=== PATIENT | male | born 1970 | race Caucasian/White ===

== ENCOUNTER 2018-02-23 17:23 | Emergency (ER) | payer MEDICAID, SELFPAY ==
[2018-02-23] VITALS (44 sets, daily range): BP systolic 109–170; BP diastolic 37–116; PULSE 88–125; RESP 14–26; TEMP 36.7; O2SAT 94–97
[2018-02-23 17:53] LABS: Abs Immature Grans 0.03 k/cumm (0.0-0.09); Absolute Basophil Count 0.03 k/cumm (0.0-0.2); Absolute Eosinophil Count 0.19 k/cumm (0.0-0.7); Absolute Lymphocyte Count 2.04 k/cumm (1.2-3.4); Absolute Monocyte Count 0.53 k/cumm (0.11-0.7); Absolute Neutrophil Count 4.57 k/cumm (1.2-6.7); Basophils % 0.4; Eosinophils % 2.6; HGB 14.9 g/dL (13.5-17.5); Immature Grans % 0.4; Lymphocytes % 27.6; Mean Corp. HGB Concentration 35.5 g/dL (32.0-36.0); Mean Corpuscular Hemoglobin 28.2 pg (27.0-33.0); Mean Corpuscular Volume 79.5 fL (80-95); Mean Platelet Volume 9.9 fL (8.0-11.0); Monocytes % 7.2; Neutrophils % 61.8; Platelet Count 186 x1000/uL (130-400); RBC 5.28 m/cumm (4.50-6.00); RBC Distribution Width 12.9 % (11.8-14.1); White Blood Cell Count 7.39 k/cumm (4.4-10.8)
[2018-02-23 18:05] LABS: Bilirubin Negative (Negative); Blood Trace-lysed (Negative); Clarity Clear; Glucose 500 mg/dL (Negative); Ketones 40 mg/dL (Negative); Leukocyte Esterase Negative (Negative); Nitrite Negative (Negative); Specific Gravity 1.015 (1.005-1.025); Urobilinogen 0.2 EU/dL (Up TO 0.2)
[2018-02-23 18:16] LABS: Bacteria Negative HPF (Negative); C & S Indicated? No; Crystals Negative HPF (Negative); Epithelial Cells Negative HPF (Negative); Mucus Negative (Negative); RBC 0-2 (0-2); WBC 0-2 HPF (0-5)
[2018-02-23 18:16] LABS: Albumin 4.1 g/dL (3.4-5.0); Alkaline Phosphatase 93 U/L (46-116); Anion Gap 12.8 mmol/L (3-11); BUN 18 mg/dL (7-18); Bilirubin, Total 0.4 mg/dL (0.2-1.0); CO2 25.2 mmol/L (21.0-32.0); CREATININE 1.07 mg/dL (0.70-1.30); Chloride 91 mmol/L (98-107); Glucose 451 mg/dL (70-100); Lipase 364 U/L (73-393); Magnesium 1.9 mg/dL (1.8-2.4); Potassium 4.1 mmol/L (3.5-5.1); Sodium 129 mmol/L (136-145); Total Protein 8.5 g/dL (6.4-8.2)
[2018-02-23 18:23] LABS: Troponin I < 0.02 ng/mL (0.00-0.06)
[2018-02-23] MEDS: Normal Saline 1,000 ML 1000 ML IV ×2 (18:28→19:42)
[2018-02-23] MEDS: Insulin REGULAR-Human 100 UNITS/ML UNIT 7 UNITS IV (18:55)
[2018-02-23 19:21] LABS: ALT 65 U/L (12-78); AST 31 U/L (15-37)
[2018-02-23 19:23] LABS: Calcium 9.4 mg/dL (8.5-10.1)
--- NOTE | 2018-02-23 20:01 | ED.GENADUL_ITS ---
Disposition <Em Segundo Mayra - Last Filed: 02/23/18 20:37> <ShaileshDanny Gonzales - Last Filed: 02/23/18 21:35> Clinical Impression: Hyperglycemia, New onset type 2 diabetes mellitus Disposition: HOME Condition: Stable Instructions: Diabetic Hyperglycemia (ED) Additional Instructions: Drink plenty of fluids and get plenty of rest. Take metformin as directed. You should receive a call from care management regarding follow-up with [facility] for reevaluation in the next 2-3 days. Return immediately to the emergency department any worsening or new concerning symptoms. Prescriptions: Blood Sugar Diagnostic [Test Strips] 1 each DIRECTED #30 strip Blood-Glucose Meter [Glucocom Blood Glucose] 1 each MC DIRECTED #1 kit Lancets [Glucocom Lancets] 1 each DIRECTED #30 each MetFORMIN [Glucophage] 500 mg PO BID@0800,1700 14 Days tab Medical Decision Making - Lab Data Laboratory Tests 02/23/18 02/23/18 02/23/18 17:45 17:45 18:00 WBC 7.39 RBC 5.28 Hgb 14.9 Hct 42.0 MCV 79.5 L MCH 28.2 MCHC 35.5 RDW 12.9 Plt Count 186 MPV 9.9 Immature Gran % 0.4 Neutrophils % 61.8 Lymphocytes % 27.6 Monocytes % 7.2 Eosinophils % 2.6 Basophils % 0.4 Absolute Neutrophils 4.57 Absolute Lymphocytes 2.04 Absolute Monocytes 0.53 Absolute Eosinophils 0.19 Absolute Basophils 0.03 Sodium 129 L Potassium 4.1 Chloride 91 L Carbon Dioxide 25.2 Anion Gap 12.8 H BUN 18 Creatinine 1.07 Estimated GFR/1.73 m2 >= 60.00 Glucose 451 H Calcium 9.4 Magnesium 1.9 Total Bilirubin 0.4 AST 31 ALT 65 Alkaline Phosphatase 93 Troponin I < 0.02 Total Protein 8.5 H Albumin 4.1 Lipase 364 Urine Color Yellow Urine Clarity Clear Urine pH 5.0 Ur Specific Perry 1.015 Urine Protein 100 H Urine Ketones 40 H Urine Blood Trace-lysed H Urine Nitrite Negative Urine Bilirubin Negative Urine Urobilinogen 0.2 Ur Leukocyte Esterase Negative Urine RBC 0-2 Urine WBC 0-2 Ur Epithelial Cells Negative Urine Crystals Negative Urine Bacteria Negative Urine Mucus Negative Ur Culture Indicated? No Urine Glucose 500 H - Medical Decision Making 47-year-old male with history of prediabetes and family history of diabetes type 2 who presents for 2 weeks of polyuria, polydipsia bilateral leg cramps. Glucose read as high with a hemoglobin A1c of 13.4% at PCP office today. Sent here for evaluation to rule out DKA versus HHS. Heart rate 111 but afebrile. Patient appears nontoxic, airway intact and in no acute distress. Accu-Chek on arrival read as high. Will place an IV, bolus IV fluids, labs, urinalysis. 1829 --labs reviewed. Sodium 129. Chloride 91. Bicarb 25. Anion gap 12.8. Glucose 451. Urinalysis notes ketones. Will give 7 units of regular insulin IV and another bolus IV fluids. 1999 --Case endorsed to Dr. Cash to follow-up on repeat BMP and disposition. Will plan for care management to arrange for a follow-up appointment with [facility] within the next 2-3 days. If repeat BMP is reassuring and glucose decreasing with no signs of DKA or HHS, will discharged home with prescription for metformin. <Em Segundo - Last Filed: 02/23/18 20:37> - Lab Data Laboratory Tests 02/23/18 02/23/18 02/23/18 17:45 17:45 18:00 WBC 7.39 RBC 5.28 Hgb 14.9 Hct 42.0 MCV 79.5 L MCH 28.2 MCHC 35.5 RDW 12.9 Plt Count 186 MPV 9.9 Immature Gran % 0.4 Neutrophils % 61.8 Lymphocytes % 27.6 Monocytes % 7.2 Eosinophils % 2.6 Basophils % 0.4 Absolute Neutrophils 4.57 Absolute Lymphocytes 2.04 Absolute Monocytes 0.53 Absolute Eosinophils 0.19 Absolute Basophils 0.03 Sodium 129 L Potassium 4.1 Chloride 91 L Carbon Dioxide 25.2 Anion Gap 12.8 H BUN 18 Creatinine 1.07 Estimated GFR/1.73 m2 >= 60.00 Glucose 451 H Calcium 9.4 Magnesium 1.9 Total Bilirubin 0.4 AST 31 ALT 65 Alkaline Phosphatase 93 Troponin I < 0.02 Total Protein 8.5 H Albumin 4.1 Lipase 364 Urine Color Yellow Urine Clarity Clear Urine pH 5.0 Ur Specific Perry 1.015 Urine Protein 100 H Urine Ketones 40 H Urine Blood Trace-lysed H Urine Nitrite Negative Urine Bilirubin Negative Urine Urobilinogen 0.2 Ur Leukocyte Esterase Negative Urine RBC 0-2 Urine WBC 0-2 Ur Epithelial Cells Negative Urine Crystals Negative Urine Bacteria Negative Urine Mucus Negative Ur Culture Indicated? No Urine Glucose 500 H 02/23/18 21:10 WBC RBC Hgb Hct MCV MCH MCHC RDW Plt Count MPV Immature Gran % Neutrophils % Lymphocytes % Monocytes % Eosinophils % Basophils % Absolute Neutrophils Absolute Lymphocytes Absolute Monocytes Absolute Eosinophils Absolute Basophils Sodium 134 L Potassium 3.7 Chloride 98 Carbon Dioxide 29.6 Anion Gap 6.4 BUN 16 Creatinine 0.96 Estimated GFR/1.73 m2 >= 60.00 Glucose 289 H D Calcium 8.2 L Magnesium Total Bilirubin AST ALT Alkaline Phosphatase Troponin I Total Protein Albumin Lipase Urine Color Urine Clarity Urine pH Ur Specific Perry Urine Protein Urine Ketones Urine Blood Urine Nitrite Urine Bilirubin Urine Urobilinogen Ur Leukocyte Esterase Urine RBC Urine WBC Ur Epithelial Cells Urine Crystals Urine Bacteria Urine Mucus Ur Culture Indicated? Urine Glucose - Medical Decision Making Patient's laboratory workup has returned normal. Anion gap is completely normalized. Sugar has significantly improved. The patient feels much better clinically. I feel that the patient be safely discharged home with metformin, and follow-up tomorrow morning with his PCP. We discussed red flags which return he understands. I have extensively reviewed the treatment plan and discharge instructions with the patient and their family. I have addressed all patient concerns at this time. The patient and family was made aware of what symptoms to monitor for that would warrant a return to the emergency department. Discussed the plan with the patient and family, they demonstrate verbal understanding and agreement with our assessment and plan at this time. <Danny Cash R - Last Filed: 02/23/18 21:35> History of Present Illness - General Source: patient Mode of arrival: ambulatory Limitations: no limitations - History of Present Illness Initial comments: Patient is a 47-year-old male with history of prediabetes, hypertension, anxiety and depression who presents for 2 weeks of polyuria, polydipsia and bilateral leg cramps in his calves. Patient also admits to occasional nausea and sweats. He also admits to a 20 pound weight loss over the past month. States he has been trying to eat healthier but otherwise has been eating frequently. Patient was seen at [facility] today for these symptoms and was sent here for further evaluation with concern for DKA versus HHS. His glucose was read as high in the PCP office today. Hemoglobin A1c from today was 13.4. <Em Segundo - Last Filed: 02/23/18 20:37> <Danny Cash - Last Filed: 02/23/18 21:35> - General Chief complaint: Diabetes Stated complaint: DIABETIC CONCERNS Time Seen by Provider: 02/23/18 17:23 - Related Data Bupropion HCl 75 mg PO DAILY 11/09/15 Chlorthalidone 25 mg PO DAILY 11/09/15 Lisinopril 20 mg PO HS 11/09/15 Magnesium Oxide [Mag-Ox 400] 400 mg PO DAILY #120 tab 11/09/15 Potassium Chloride 40 meq PO DAILY #60 tablet.er 11/09/15 Sertraline HCl 100 mg PO HS 11/09/15 Blood Sugar Diagnostic [Test Strips] 1 each MC DIRECTED #30 strip 02/23/18 Blood-Glucose Meter [Glucocom Blood Glucose] 1 each MC DIRECTED #1 kit Lancets [Glucocom Lancets] 1 each MC DIRECTED #30 each 02/23/18 MetFORMIN [Glucophage] 500 mg PO BID@0800,1700 14 Days tab 02/23/18 Allergies Allergy/AdvReac Type Severity Reaction Status Date / Time No Known Allergies Allergy Unverified 02/23/18 17:32 Review of Systems Constitutional: denies: chills, fever Eyes: denies: eye pain ENT: denies: ear pain, dental pain Respiratory: denies: cough, shortness of breath Cardiovascular: denies: chest pain, dyspnea on exertion Gastrointestinal: denies: abdominal pain, nausea, vomiting Genitourinary: denies: urgency, dysuria, frequency, hematuria Musculoskeletal: denies: back pain Skin: denies: rash, lesions Neurological: denies: headache, weakness, numbness <Em Segundo - Last Filed: 02/23/18 20:37> Past Medical History - Past Medical History Medical history: hyperlipidemia, hypertension Pre-Diabetes Surgical history: appendectomy, other (eye surgery and skin tags removed. ) Psychiatric history: anxiety, depression Family history: no significant family history - Social History Smoking status: never smoker Alcohol use: occasionally Drug use: none <Em Segundo - Last Filed: 02/23/18 20:37> General Exam - General Limitations: no limitations General appearance: alert, in no apparent distress - Eye Eye exam: Present: PERRL, EOMI. Absent: scleral icterus, conjunctival injection - Respiratory Respiratory exam: Present: normal lung sounds bilaterally. Absent: respiratory distress, wheezes, rales, rhonchi, stridor - Cardiovascular Cardiovascular Exam: Present: regular rate, normal rhythm. Absent: bradycardia , tachycardia - GI/Abdominal GI/Abdominal exam: Present: soft, normal bowel sounds. Absent: distended, tenderness, guarding, rebound, rigid - Neurological Exam Neurological exam: Present: alert, oriented X3 - Psychiatric Psychiatric exam: Present: normal affect - Skin Skin exam: Present: warm, dry, intact <Em Segundo - Last Filed: 02/23/18 20:37> Course Vital Signs - 24 hr 02/23/18 17:30 Temperature 98.1 F Pulse 111 H Respiratory 18 Rate Blood Pressure 151/99 Pulse Oximetry 96 <Em Segundo - Last Filed: 02/23/18 20:37> Vital Signs - 24 hr 02/23/18 02/23/18 02/23/18 17:30 17:36 17:40 Temperature 36.7 C Pulse 111 H Respiratory 18 14 22 Rate Blood Pressure 151/99 Pulse Oximetry 96 96 95 02/23/18 02/23/18 02/23/18 17:46 17:50 18:00 Temperature Pulse 93 H Respiratory 21 23 23 Rate Blood Pressure 152/106 Pulse Oximetry 95 95 02/23/18 02/23/18 02/23/18 18:01 18:10 18:16 Temperature Pulse 89 93 H Respiratory 21 20 23 Rate Blood Pressure 140/93 152/97 Pulse Oximetry 95 97 94 L 02/23/18 02/23/18 02/23/18 18:20 18:30 18:31 Temperature Pulse 93 H Respiratory 19 26 H 22 Rate Blood Pressure 151/116 Pulse Oximetry 94 L 95 94 L 02/23/18 02/23/18 02/23/18 18:40 18:46 18:50 Temperature Pulse 90 Respiratory 24 21 22 Rate Blood Pressure 170/100 Pulse Oximetry 94 L 94 L 95 02/23/18 02/23/18 02/23/18 18:51 19:00 19:01 Temperature Pulse 89 94 H Respiratory 22 24 24 Rate Blood Pressure 134/81 149/77 Pulse Oximetry 96 02/23/18 02/23/18 02/23/18 19:10 19:16 19:20 Temperature Pulse 97 H Respiratory 23 26 H 24 Rate Blood Pressure 109/86 Pulse Oximetry 02/23/18 02/23/18 02/23/18 19:30 19:46 20:00 Temperature Pulse 100 H 99 H 93 H Respiratory Rate Blood Pressure 127/88 146/98 126/77 Pulse Oximetry 02/23/18 02/23/18 02/23/18 20:15 20:30 20:45 Temperature Pulse 93 H 92 H 91 H Respiratory Rate Blood Pressure 123/83 131/85 123/75 Pulse Oximetry 02/23/18 21:02 Temperature Pulse 125 H Respiratory Rate Blood Pressure 120/37 Pulse Oximetry <Danny aCsh R - Last Filed: 02/23/18 21:35>
[2018-02-23 21:19] LABS: Anion Gap 6.4 mmol/L (3-11); BUN 16 mg/dL (7-18); CO2 29.6 mmol/L (21.0-32.0); CREATININE 0.96 mg/dL (0.70-1.30); Calcium 8.2 mg/dL (8.5-10.1); Chloride 98 mmol/L (98-107); Glucose 289 mg/dL (70-100); Potassium 3.7 mmol/L (3.5-5.1); Sodium 134 mmol/L (136-145)
--- NOTE | 2018-02-24 13:32 | PDOC.ERCMPRO ---
Care Management Progress Note 02/24-Dr. Segundo requested assistance with a PCP (Dr. Putnam) f/u within two days for new onset diabetes. Referral faxed to [facility] today.
== END 2018-02-23 21:42 | disposition home or self-care (01) ==
PROVIDERS: Emergency Provider Physician Assistant
DX: E11.65 Type 2 diabetes mellitus with hyperglycemia (principal); Z79.84 Long term (current) use of oral hypoglycemic drugs; I10 Essential (primary) hypertension
CPT/HCPCS: 36415; 36416; 80048; 80053; 82962; 83690; 96361; 96374; 99284; 81003; 81015; 83735; 84484; 85025

== ENCOUNTER → 2018-03-02 10:57 | Outpatient (REF) | payer MEDICAID, SELFPAY ==
[2018-03-02 12:26] LABS: ALT 77 U/L (12-78); AST 35 U/L (15-37); Albumin 3.9 g/dL (3.4-5.0); Alkaline Phosphatase 65 U/L (46-116); Anion Gap 7.6 mmol/L (3-11); BUN 14 mg/dL (7-18); Bilirubin, Total 0.4 mg/dL (0.2-1.0); CO2 26.4 mmol/L (21.0-32.0); CREATININE 0.93 mg/dL (0.70-1.30); Calcium 8.8 mg/dL (8.5-10.1); Chloride 102 mmol/L (98-107); Glucose 236 mg/dL (70-100); Potassium 4.4 mmol/L (3.5-5.1); Sodium 136 mmol/L (136-145); Total Protein 7.3 g/dL (6.4-8.2)
== END ==
LOC: NCHCN 10:57
PROVIDERS: Visit Provider Nurse Practitioner
DX: E11.9 Type 2 diabetes mellitus without complications (principal)
CPT/HCPCS: 80053

== ENCOUNTER 2018-03-16 09:32 | Outpatient (REF) | payer MEDICAID, SELFPAY ==
[2018-03-16 14:22] LABS: Cholesterol 195 mg/dL (50-200); HDL Cholesterol 39 mg/dL (40-60); LDL CHOLESTEROL 115 mg/dL (<100); Triglyceride 324 mg/dL (30-150)
== END 2018-03-16 09:52 ==
LOC: NCHCN 09:32
PROVIDERS: Visit Provider Nurse Practitioner
DX: E11.9 Type 2 diabetes mellitus without complications (principal); E66.9 Obesity, unspecified; Z00.00 Encounter for general adult medical examination without abnormal findings
CPT/HCPCS: 80061; 83721

== ENCOUNTER 2018-03-21 08:28 | Outpatient (CLI) | payer MEDICAID, SELFPAY ==
--- NOTE | 2018-03-14 14:30 | DIABASSESS_ITS ---
DESCRIPTION: Mayito Kenney presents for diabetes self management with his and daughter. His is familiar with diabetes and has been a support for him. He has had significant symptoms of thirst, frequent urination, fatigue and blurred vision. FOOD: Mayito has given up sugar sweetened beverage completely and has cut his portions. He is also eating more slowly. He is now drinking a [employer]ake[employer] mixed with water or milk. If he takes his lunch, it is a sandwich. Sometimes he doesn?t take it and when he gets home he eats from refrigerator indiscriminately. He now eats meat, vegetable and fruit for supper. He feels he does pretty well. He snacks on beef jerky. PHYSICAL ACTIVITY: He does not do any regular physical activity at this time. MONITORING: Mayito monitors fasting in the 250 range and when he gets home in the 230mg/dl range. He is aware of A1c interpretation and use. MEDICATIONS: Metformin 850 twice daily without ongoing side effects. He is also medically managed for hypertension, depression, stomach issues. STRESS: Mayito states he does not have stress or symptoms of depression at this time. He sleeps well with his C-Pap machine. ASSESSMENT/INTERVENTION: Mayito has made many changes to help manage his newly diagnosed diabetes. Based on Mayito?s assessed diabetes education needs, discussed: Nutrition reviewed food guide to increase variety for him and he voices understanding. Discussed mindful eating concepts of hunger/fullness and overconsumption. Discussed tracking his food and blood sugars and his has used an Kandace she will set up for him. Physical Activity: encouraged physical activity daily starting with 10 minutes with a goal of 30 minutes daily. Medications: Discussed options if additional medication is needed given his A1c. Discussed new medications that help with weight loss and cardiovascular protection. Monitoring: Discussed monitoring for meaning to answer a question. His uses an kandace which she will download for him and get him set up. He will consider monitoring before bed on occasion. He is engaged in the conversation and motivated to work on the following. PLAN: Always take something to eat to work for lunch Walk 10 minutes 5 days a week Discuss medication options with provider if blood sugars not improving Set up Kandace to record food/blood sugars We will be in touch by telephone and follow up as needed.
== END 2018-03-21 08:48 ==
PROVIDERS: Visit Provider Dietitian, Registered
DX: E11.9 Type 2 diabetes mellitus without complications (principal); Z79.84 Long term (current) use of oral hypoglycemic drugs; Z71.3 Dietary counseling and surveillance
CPT/HCPCS: 97802

== ENCOUNTER 2019-03-14 10:47 | Outpatient (REF) | payer MEDICAID, SELFPAY ==
[2019-03-14 21:45] LABS: ALT 63 U/L (16-63); AST 25 U/L (15-37); Albumin 4.3 g/dL (3.4-5.0); Alkaline Phosphatase 66 U/L (46-116); Anion Gap 9.2 mmol/L (3-11); BUN 15 mg/dL (7-18); Bilirubin, Total 0.4 mg/dL (0.2-1.0); CO2 28.8 mmol/L (21.0-32.0); CREATININE 0.97 mg/dL (0.70-1.30); Calcium 9.1 mg/dL (8.5-10.1); Calculated LDL 30 mg/dL; Chloride 104 mmol/L (98-107); Cholesterol 123 mg/dL (50-200); Glucose 105 mg/dL (70-100); HDL Cholesterol 37 mg/dL (40-60); Potassium 4.1 mmol/L (3.5-5.1); Sodium 142 mmol/L (136-145); Total Protein 7.7 g/dL (6.4-8.2); Triglyceride 281 mg/dL (30-150)
[2019-03-14 22:06] LABS: Hemoglobin A1C 6.6 % (4.5-6.2)
== END 2019-03-14 11:07 ==
LOC: NCHCN 10:47
PROVIDERS: PCP Nurse Practitioner Family; Visit Provider Nurse Practitioner Family
DX: E11.9 Type 2 diabetes mellitus without complications (principal); E78.5 Hyperlipidemia, unspecified; Z86.39 Personal history of other endocrine, nutritional and metabolic disease
CPT/HCPCS: 80053; 80061; 83036

== ENCOUNTER 2020-02-26 02:10 | Outpatient (REF) | payer SELFPAY ==
[2020-03-01 11:51] LABS: TB Interpretation Negative (Negative)
== END 2020-02-26 02:30 ==
LOC: LBO 02:10
PROVIDERS: PCP Nurse Practitioner Family; Visit Provider Nurse Practitioner Family
DX: Z11.1 Encounter for screening for respiratory tuberculosis (principal)
CPT/HCPCS: 86480

== ENCOUNTER 2020-03-13 02:19 | Outpatient (CLI) | payer MEDICAID, SELFPAY ==
[2020-03-13 14:55] LABS: Abs Immature Grans 0.03 10^3/uL (0.0-0.06); Absolute Basophil Count 0.03 10^3/uL (0.0-0.2); Absolute Eosinophil Count 0.15 10^3/uL (0.0-0.7); Absolute Lymphocyte Count 1.91 10^3/uL (1.2-3.4); Absolute Neutrophil Count 4.14 10^3/uL (1.2-6.7); Basophils % 0.4; Eosinophils % 2.2; HCT 39.6 % (40.0-50.0); HGB 13.1 g/dL (13.5-17.5); Immature Grans % 0.4; Lymphocytes % 28.3; MCH 28.2 pg (27.0-33.0); MCHC 33.1 % (32.0-36.0); MCV 85.3 fL (80-95); MPV 9.1 fL (8.0-11.0); Monocytes % 7.4; Neutrophils % 61.3; Nucleated RBC 0 %; Platelet Count 176 10^3/uL (130-400); RBC 4.64 10^6/uL (4.36-5.78); RDW 13.3 % (11.8-14.1); RDW-SD 41.5 fL; WBC 6.76 10^3/uL (4.4-10.8)
[2020-03-13 16:19] LABS: ALT 59 U/L (16-63); AST 25 U/L (15-37); Albumin 4.4 g/dL (3.4-5.0); Alkaline Phosphatase 69 U/L (46-116); Anion Gap 5.3 mmol/L (3-11); BUN 17 mg/dL (7-18); Bilirubin, Total 0.5 mg/dL (0.2-1.0); CO2 31.7 mmol/L (21.0-32.0); Calcium 8.9 mg/dL (8.5-10.1); Chloride 102 mmol/L (98-107); Glucose 88 mg/dL (74-106); Potassium 3.4 mmol/L (3.5-5.1); Sodium 139 mmol/L (136-145); Total Protein 7.6 g/dL (6.4-8.2)
[2020-03-13 19:18] LABS: Hemoglobin A1C 6.5 % (<5.7)
== END 2020-03-13 02:39 ==
PROVIDERS: PCP Nurse Practitioner Family; Visit Provider Family Medicine
DX: E11.9 Type 2 diabetes mellitus without complications (principal); I10 Essential (primary) hypertension
CPT/HCPCS: 36415; 80053; 83036; 85025

== ENCOUNTER 2020-07-11 13:36 | Emergency (ER) | payer MEDICAID, SELFPAY ==
[2020-07-11 13:39] VITALS: BP 143/87; PULSE 91; RESP 18; TEMP 36.4; O2SAT 98
--- NOTE | 2020-07-11 13:45 | DI.RAD_ITS ---
EXAM: XR CERVICAL SP LEAL TRAUMA 2-3V CLINICAL HISTORY: Cervical Radiculopathy. TECHNIQUE: 2D digital imaging was performed. COMPARISON: No exams were available for comparison FINDINGS: There is no evidence of acute fracture or listhesis nor opposite the spinal laminar line. Mild disc space narrowing at C5-6 and C6-7 levels noted. No cervical ribs. No facet arthropathy. There is so me mild calcification noted in the supraspinous ligament posteriorly at the C4-5 level. No significant osseous lesions. IMPRESSION: No fracture or listhesis. Degenerative disc disease as described above. DATA REPOSITORY: RADIATION DOSE DELIVERED:
--- NOTE | 2020-07-11 13:57 | W.ED.GENAD ---
Discharge Plan Disposition Patient Disposition: HOME Condition: Stable Discharge Details Clinical Impression: Cervical radicular pain Primary Care Provider: Josefina Stockton ED Provider: Sepideh Mackey Home Meds and New Rx's Prescriptions: New cyclobenzaprine 10 mg tablet 10 mg PO TID PRN (Reason: muscle spasm) Qty: 10 RF: 0 Continued lisinopril 20 MG tablet 20 mg PO HS RF: 0 sertraline 100 MG tablet 100 mg PO HS RF: 0 chlorthalidone 25 MG tablet 25 mg PO DAILY RF: 0 bupropion HCl 75 MG tablet 75 mg PO DAILY RF: 0 magnesium oxide 400 MG tablet 400 mg PO DAILY Qty: 120 RF: 10 potassium chloride 10 MEQ tablet extended release 40 meq PO DAILY Qty: 60 RF: 10 metformin [Glucophage] 1,000 MG tablet 500 mg PO BID@0800,1700 14 Days RF: 0 (DME) blood sugar diagnostic [Blood Glucose Test] 1 EACH strip 1 ea Miscellaneous DIRECTED Qty: 30 RF: 0 (DME) lancets [Glucocom Lancets] 1 EACH misc 1 ea Miscellaneous DIRECTED Qty: 30 RF: 0 (DME) blood-glucose meter [Glucocom Blood Glucose] 1 EACH kit 1 ea Miscellaneous DIRECTED Qty: 1 RF: 0 Discharge Instructions Instructions: Neck Pain (ED) Additional Instructions: Follow up with primary care provider in 3-5 days. Return to ED sooner if any worsening or concerns. Increase oral fluids. Please take Tylenol or Ibuprofen with food every 4-6 hours as needed for pain and swelling. You may get lidocaine patches [id number], alternate ice and heat, physical therapy may help. Take medications and relaxers as directed. Return for any worsening numbness or tingling or arm pain. Referrals: Josefina Stockton [Primary Care Provider] - Medical Decision Making 50-year-old male presents to the ED with chief complaint of neck pain with radiation down into his right arm and elbow. He also has tingling distally down to his hand. He reports this began approximately 1 week ago and got worse last night resulting in difficulty sleeping. He denies any injuries. 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 He is having full range of motion to his right upper extremity, he has increased pain with full abduction of his right shoulder. He has no midline C-spine tenderness, crepitus, step-off with palpation. EXAM: XR CERVICAL SP LEAL TRAUMA 2-3V CLINICAL HISTORY: Cervical Radiculopathy. TECHNIQUE: 2D digital imaging was performed. COMPARISON: No exams were available for comparison FINDINGS: There is no evidence of acute fracture or listhesis nor opposite the spinal laminar line. Mild disc space narrowing at C5-6 and C6-7 levels noted. No cervical ribs. No facet arthropathy. There is some mild calcification noted in the supraspinous ligament posteriorly at the C4-5 level. No significant osseous lesions. IMPRESSION: No fracture or listhesis. Degenerative disc disease as described above. Patient reevaluation he states he feels somewhat better and the tingling has decreased in his right arm. Discussed x-ray results, verbalized understanding. Will give 2 tablets of tramadol to go, prescribe Flexeril for muscle spasm and place a lidocaine patch transdermally prior to discharge. Instructed on alternating ice and heat, follow-up with PCP and discuss strict return instructions, patient verbalized understanding. This text was generated using [employer]recip[employer] dictation system, please disregard any oddities of phrase or misspellings. HPI General Mode of arrival: ambulatory. Date/Time Provider Initiated Documentation: 07/11/20 13:44. Limitations to Documentation: no limitations. Information obtained by: patient. HPI Narrative: 50-year-old male presents to the ED with chief complaint of neck pain with radiation down into his right arm and elbow. He also has tingling distally down to his hand. He reports this began approximately 1 week ago and got worse last night resulting in difficulty sleeping. He denies any injuries. 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 He is having full range of motion to his right upper extremity, he has increased pain with full abduction of his right shoulder. He has no midline C-spine tenderness, crepitus, step-off with palpation. Related Data Home Medications Medication Instructions Recorded Confirmed bupropion HCl 75 mg PO DAILY 11/09/15 07/11/20 chlorthalidone 25 mg PO DAILY 11/09/15 07/11/20 lisinopril 20 mg PO HS 11/09/15 07/11/20 magnesium oxide 400 mg PO DAILY #120 tab 11/09/15 07/11/20 potassium chloride 40 meq PO DAILY #60 tablet.er 11/09/15 07/11/20 sertraline 100 mg PO HS 11/09/15 07/11/20 blood sugar diagnostic [Blood #30 strip 02/23/18 Glucose Test] blood-glucose meter [Glucocom #1 kit 02/23/18 Blood Glucose] lancets [Glucocom Lancets] #30 ea 02/23/18 metformin [Glucophage] 500 mg PO BID@0800,1700 14 Days 02/23/18 07/11/20 tab cyclobenzaprine 10 mg PO TID PRN #10 tab 07/11/20 Previous Rx's Medication Instructions Recorded magnesium oxide 400 mg PO DAILY #120 tab 11/09/15 potassium chloride 40 meq PO DAILY #60 tablet.er 11/09/15 blood sugar diagnostic [Blood #30 strip 02/23/18 Glucose Test] blood-glucose meter [Glucocom #1 kit 02/23/18 Blood Glucose] lancets [Glucocom Lancets] #30 ea 02/23/18 metformin [Glucophage] 500 mg PO BID@0800,1700 14 Days 02/23/18 tab cyclobenzaprine 10 mg PO TID PRN #10 tab 07/11/20 Allergies Allergy/AdvReac Type Severity Reaction Status Date / Time No Known Allergies Allergy Unverified 07/11/20 13:43 General Stated Complaint: GenMedical LISA: 3 Review of Systems All systems reviewed & are unremarkable except as noted in HPI and below ENT Ears, Nose, Mouth, and Throat: Reports neck pain Musculoskeletal Musculoskeletal: Reports as per HPI, Reports neck pain, Reports radiating pain into limb (Right upper extremity) and Reports tingling (From elbow down to hand) Neurologic Neurologic: Reports tingling (From elbow down to hand) [facility] Social History Smoking/Tobacco Use Status: Never Smoking risk assessment performed?: Yes Alcohol Intake: current Alcohol Intake frequency: holidays/special occasions only Drug use: Never Substance use type: does not use Do you feel safe at home: Yes Do you feel safe in your relationship?: Yes Exam Narrative Exam Narrative: Constitutional: Alert and oriented x3. Appears stated age. Normal body habitus. Head: Normocephalic, no trauma. Eyes: Pupils PERRLA, Red reflex noted, EOM's intact. Eyelids symmetrical without lesions, discharge, or swelling. Chest: RRR, Normal S1, S2, distal pulses intact. Resp: Lungs clear to auscultation bilaterally, no wheezes, rales, or rhonchi. Musculoskeletal: Normal gait, 5/5 strength to all four extremities. Reports pain with right shoulder abduction, midline C-spine tenderness none to palpation. Skin: No suspicious rashes or lesions. Capillary refill less than 2 sec. Neurologic: Cranial nerves II-XII intact. Alert and oriented x 3. DTR's intact. Hematologic/Lymphatic: No ecchymosis, no lymphadenopathy. Course Vital Signs Vital signs: Vital Signs Temperature 36.4 C L 07/11/20 13:39 Pulse 91 H 07/11/20 13:39 Respiratory Rate 18 07/11/20 13:39 Blood Pressure 143/87 H 07/11/20 13:39 Pulse Oximetry 98 07/11/20 13:39 Temperature 36.4 C L 07/11/20 13:39 Temperature Source Temporal Artery Scan 07/11/20 13:39 Pulse 91 H 07/11/20 13:39 Respiratory Rate 18 07/11/20 13:39 Respiratory Effort Non-Labored 07/11/20 13:45 Blood Pressure 143/87 H 07/11/20 13:39 Blood Pressure Position Sitting 07/11/20 13:39 Pulse Oximetry 98 07/11/20 13:39 Oxygen Delivery Method Room Air 07/11/20 13:39 Oxygen Flow Rate 0 07/11/20 13:39 Pain Level 6 07/11/20 13:39
[2020-07-11] MEDS: traMADol 50 MG TAB PO (14:02)
[2020-07-11] MEDS: Cyclobenzaprine 10 MG TAB PO (14:03)
[2020-07-11] MEDS: Lidocaine 5% Patch 1 PATCH TP (15:22)
== END 2020-07-11 15:24 | disposition home or self-care (01) ==
PROVIDERS: Emergency Provider Registered Nurse Emergency; PCP Nurse Practitioner Family
DX: M54.12 Radiculopathy, cervical region (principal); R20.2 Paresthesia of skin
CPT/HCPCS: 99284; 72040

== ENCOUNTER 2021-05-27 10:18 | Outpatient (REF) | payer MEDICAID, SELFPAY ==
[2021-05-26 16:17] LABS: ALT 46 U/L (16-63); AST 19 U/L (15-37); Albumin 4.3 g/dL (3.4-5.0); Alkaline Phosphatase 68 U/L (46-116); Anion Gap 10.3 mmol/L (3-11); BUN 21 mg/dL (7-18); Bilirubin, Total 0.4 mg/dL (0.2-1.0); CO2 28.7 mmol/L (21.0-32.0); Calcium 8.8 mg/dL (8.5-10.1); Calculated LDL 83 mg/dL (<100); Chloride 107 mmol/L (98-107); Cholesterol 159 mg/dL (<200); Glucose 102 mg/dL (74-106); HDL Cholesterol 48 mg/dL (40-60); Potassium 4.1 mmol/L (3.5-5.1); Sodium 146 mmol/L (136-145); Total Protein 7.7 g/dL (6.4-8.2); Triglyceride 143 mg/dL (<150)
[2021-05-26 16:52] LABS: Hemoglobin A1C 6.4 % (<5.7)
== END 2021-05-27 10:19 | disposition home or self-care (01) ==
LOC: NCHCN 10:18
PROVIDERS: PCP Nurse Practitioner Family; Visit Provider Family Medicine
DX: E11.9 Type 2 diabetes mellitus without complications (principal); E78.5 Hyperlipidemia, unspecified; I10 Essential (primary) hypertension
CPT/HCPCS: 80053; 80061; 83036

== ENCOUNTER 2022-05-22 08:24 | Day surgery (SDC) | payer MEDICAID, SELFPAY ==
[2022-05-22 08:30] VITALS: BP 152/87; PULSE 77; RESP 16; TEMP 36.5; O2SAT 97
[2022-05-22] MEDS: Lactated Ringers 1,000 ML 80 ML IV (09:04)
--- NOTE | 2022-05-22 09:17 | W.ANESPRE ---
General Info Date of Service Date Performed: 05/22/22 Height: 5 ft 9.5 in Weight: 109.1 kg Body Mass Index (BMI): 34.9 Surgical Procedure: Operation Date: 05/22/22 10:20 Proposed Procedure Side Surgeon p Colonoscopy Jacqueline Weston MD Meds Allergies and Home Medications Allergies Allergy/AdvReac Type Severity Reaction Status Date / Time No Known Allergies Allergy Unverified 05/22/22 08:41 Home Medication Medication Instructions Recorded bupropion HCl 75 mg tablet 75 mg PO DAILY 11/09/15 chlorthalidone 25 mg tablet 25 mg PO DAILY 11/09/15 lisinopril 20 mg tablet 20 mg PO HS 11/09/15 magnesium oxide 400 mg (241.3 mg 400 mg PO DAILY #120 tabs 11/09/15 magnesium) tablet potassium chloride 10 mEq 40 meq PO DAILY ##60 11/09/15 tablet,extended release sertraline 100 mg tablet 100 mg PO HS 11/09/15 blood sugar diagnostic (Blood #30 strips 02/23/18 Glucose Test strips) blood-glucose meter (Glucocom ##1 02/23/18 Blood Glucose kit) lancets 28 gauge (Glucocom Lancets) #30 ea 02/23/18 cyclobenzaprine 10 mg tablet 10 mg PO TID PRN muscle spasm #10 07/11/20 tabs atorvastatin 40 mg tablet 40 mg PO QHS 09/04/21 metformin 850 mg tablet 850 mg PO BID 09/04/21 methylphenidate HCl 54 mg 54 mg PO DAILY 09/04/21 tablet,extended release 24 hr (Concerta) bisacodyl 5 mg tablet,delayed 5 mg PO ONCE colonscopy bowel prep 05/11/22 release (Dulcolax (bisacodyl)) #4 tabs multivitamin 1 tab PO DAILY 05/11/22 polyethylene glycol 3350 17 238 g PO ONCE colonoscopy prep 05/11/22 gram/dose oral powder #238 grams Current Visit Medications: Current Medications Generic Name Dose Route Start Last Admin Trade Name Freq PRN Reason Stop Dose Admin Ringer's Solution 1,000 mls @ 80 mls/hr 05/22/22 06:00 05/22/22 09:04 IV 05/22/22 23:59 80 mls/hr INFUSION BO Administration IV Miscellaneous Supplies 1 each 05/22/22 06:00 Iv Access IV 05/22/22 23:59 DIRECTED BO Sodium Chloride 0 ml 05/22/22 06:00 Normal Saline Flush 10 Ml Syr IV 05/22/22 23:59 PRN PRN Sodium Chloride 0 ml 05/22/22 06:00 Normal Saline 10 Ml Vial IJ 05/22/22 23:59 DIRECTED PRN Sterile Water 0 ml 05/22/22 06:00 Water,Injection,Sterile 10 Ml Vial IJ 05/22/22 23:59 DIRECTED PRN [facility] Medical History Medical History (Updated 05/22/22 @ 08:40 by Opal Roberto) Attention deficit disorder (ADD) in adult Diabetes STEPHANE on CPAP Surgical History Surgical History History of appendectomy History of eye surgery Lazy eye Tobacco Smoking/Tobacco Use Status: Never Alcohol Alcohol Intake: current Alcohol intake frequency: holidays/special occasions only Substance Use Substance use: Never Substance use type: does not use Vital Signs and Lab Results Vital Signs Most Recent Vital Signs in EMR: Most Recent Vital Signs Temp Pulse Resp BP Pulse Ox 36.5 C 77 16 152/87 H 97 05/22/22 08:30 05/22/22 08:30 05/22/22 08:30 05/22/22 08:30 05/22/22 08:30 Point of Care Results Point of Care Results: Finger Stick Blood Glucose 107 05/22/22 09:09 Lab Results Blood Type / Crossmatch: No Data to Display Complete Blood Count: No Data to Display Complete Metabolic Panel: No Data to Display Liver Function Panel: No Data to Display Coagulation Panel: No Data to Display Cardiac Panel: No Data to Display Arterial Blood Gas: No Data to Display Venous Blood Gas: No Data to Display Pancreas Panel: No Data to Display Thyroid Panel: No Data to Display Infectious Disease: No Data to Display Blood Cultures: No Data to Display Toxicology Panel: No Data to Display Anesthesia Assessment and Plan Anesthesia History Personal History: No History of Anesthesia Complications Family History: No Family History of Anesthesia Complications Exercise Tolerance Exercise Tolerance: Metabolic Equivalents>4 Pertinent Negatives Pertinent Negatives: No Symptoms of GERD Cardiac & Pulmonary Exam Cardiac Exam: Normal S1/S2 Heart Sounds Pulmonary Exam: Clear Bilateral Breath Sounds Implantable Cardiac Device Does patient have a Pacemaker or an ICD?: No Airway Exam Known Difficult Airway: No Mallampati Class: 1 Mouth Opening: Normal (> 3cm) Thyromental Distance: Greater than 3 cm Neck Range of Motion: Full ROM Neck Circumference: Normal Teeth Condition: Normal Dentition ASA Classification ASA Score: ASA 2 Emergency Case?: No NPO Status NPO Status: NPO Clears >2 hours, Solids >8 hours Anesthesia Plan Resuscitation Status: Full Code Anesthesia Technique: General Anesthesia Airway Planned: Natural Airway Monitors Used: Standard Monitors
[2022-05-22 09:19] VITALS: BMI 34.9
--- NOTE | 2022-05-22 09:34 | PDOC.DSDIS_ITS ---
Date of service: 05/22/22 Time of Service: 10:09 Discharge Plan Disposition Patient Disposition: HOME Condition: Good Discharge Details Reason For Visit: colonoscopy Attending Provider: Jacqueline Weston Primary Care Provider: Josefina Stockton Home Meds and New Rx's Prescriptions: Continued multivitamin Tablet 1 tab PO DAILY methylphenidate HCl [Concerta] 54 mg tablet extended release 24hr 54 mg PO DAILY atorvastatin 40 mg tablet 40 mg PO QHS metformin 850 mg tablet 850 mg PO BID lisinopril 20 MG tablet 20 mg PO HS sertraline 100 MG tablet 100 mg PO HS chlorthalidone 25 MG tablet 25 mg PO DAILY bupropion HCl 75 MG tablet 75 mg PO DAILY magnesium oxide 400 MG tablet 400 mg PO DAILY Qty: 120 10RF potassium chloride 10 MEQ tablet extended release 40 meq PO DAILY Qty: 60 10RF cyclobenzaprine 10 mg tablet 10 mg PO TID PRN (Reason: muscle spasm) Qty: 10 0RF (DME) Blood Glucose Test 1 EACH strip 1 ea Miscellaneous DIRECTED Qty: 30 0RF (DME) lancets [Glucocom Lancets] 1 EACH misc 1 ea Miscellaneous DIRECTED Qty: 30 0RF (DME) blood-glucose meter [Glucocom Blood Glucose] 1 EACH kit 1 ea Miscellaneous DIRECTED Qty: 1 0RF Discontinued polyethylene glycol 3350 17 gram/dose powder 238 g PO ONCE Qty: 238 0RF Rx Instructions: take per colonoscopy instructions bisacodyl [Dulcolax (bisacodyl)] 5 mg tablet,delayed release (DR/EC) 5 mg PO ONCE Qty: 4 0RF Rx Instructions: take per colonoscopy instructions Discharge Instructions Additional Instructions: Findings: one polyp Follow up: most likely 5 years Please call if you develop: fevers >101.5 Nausea or Vomiting Abdominal pain that is not transient Rectal bleeding that is more then a tbsp A hard abdomen and inability to pass gas DAY SURGERY UNIT POST ENDOSCOPY INSTRUCTIONS Instructions for everyone who is given Anesthesia: For your safety, please do the following for the next 24 Hours: a. Do not drive or operate dangerous equipment b. Do not drink alcohol beverages or use any recreational drugs for the first 24 hours or while taking pain medications. The medications in your body may have a reaction that can be dangerous. c. Do not make any important decisions or sign any important papers 1. Generally there are no restrictions on your activity after a day or so has gone by, but you may feel a bit fatigued for a few days. 2. After you arrive home you may have a light meal and return to a normal diet as you can tolerate it without feeling sick to your stomach. 3. After surgery, you may feel pain or discomfort. This should be only trans ient, but if it persists please contact your doctor. 4. If there are any questions regarding the findings of your procedure, please feel free to contact your doctor. 6. If you are unable to contact your doctor with a problem, contact the hospital at [phone]. 7. Continue all your regular medications unless directed otherwise. I understand the above instructions and have no questions. Signature of Patient or Responsible Adult Escort Date/Time Name of Responsible Adult Escort Signature of Nurse Date/Time Activity:: Activity as Tolerated Equipment/Supplies:: No Equipment Needed Diet:: As Tolerated
--- NOTE | 2022-05-22 09:34 | W.COLOREPORT ---
Date of service: 05/22/22 Time of Service: :25 Colonoscopy Report Date of procedure: 05/22/22 Pre-op diagnosis general: screening Post-op diagnosis procedure note: same Procedure: Colonoscopy Surgeon: Jacqueline Weston Anesthesia Type: General:No Airway Estimated blood loss (mL): 2 Pathology: none sent Complications: None Disposition: same day Indications: Pt seen at the request of PCP regarding colon cancer screening. Pt has never had colon cancer screening before.? They denies problems with constipation or diarrhea.? They deny any pain or difficulty with bowel movements, or rectal bleeding.? There is no family history of any colon cancer.? Pt has not had any unexplained weight loss.? Their appetite is good.? ?They deny heart, lung, or kidney problems. They are not having heartburn or indigestion. They have not had any prior colo-rectal surgery.? The patient? has not had a prior prostate Sx.? They deny any problems with anesthesia in the past.? Prep: Miralax/Dulcolax Procedure Start Time: :25 Procedure End Time: 10:46 Retraction Time: 14 minutes Findings: Diverticulosis Procedure Description: After informed consent was obtained the patient was taken to the procedure room and placed in a left decubitous position. Monitors were applied and a time out was done. The patients name, date of , procedure, allergies to medications and metal in their body was reviewed. The patient was then sedated. Once sedated and comfortable a rectal exam was done. External exam was normal. Internal exam revealed a normal sphincter tone and no palpable masses. The prostatefelt normal. The scope was then introduced and retro-flexed. No internal hemorrhoids, polyps or masses were identified on retro-flexion. The scope was then advanced to the cecum without difficulty. The ileocecal vlave and appendiceal orifice were identified. The prep was adequate. The scope was then slowly retracted over 14 minutes back into the rectum. There were no polyps. There was mild sigmoid diverticulosis noted. The scope was removed and the patient was woken up and taken back to Same day surgery in stable condition. The patient tolerated the procedure well and there were no immediate complications. Follow up: The patient should follow up in 10 years unless they develop changes in bowel habits or other new gastrointestinal complaints.
[2022-05-22 10:53] VITALS: BP 120/80; PULSE 73; RESP 18; TEMP 36.4; O2SAT 95
[2022-05-22 11:16] VITALS: BP 134/89; PULSE 81; RESP 18; TEMP 36.4; O2SAT 95
--- NOTE | 2022-05-22 11:40 | W.ANESPOSTOP ---
Postoperative Evaluation Date, Time and Location Date Performed: 05/22/22 Time Performed: 11:40 Patient Location: Day Surgery Unit Vital Signs Most Recent Imported Vital Signs: Most Recent Vital Signs Temp Pulse Resp BP Pulse Ox 36.4 C L 81 18 134/89 95 05/22/22 11:16 05/22/22 11:16 05/22/22 11:16 05/22/22 11:16 05/22/22 11:16 Assessment Mental Status: Awake (Alert & Oriented to Patient Baseline) Airway and Respiratory Function: Patent airway with normal (patient baseline) respiratory exam Cardiovascular Function: Hemodynamically Stable Hydration Status: Adequately Hydrated Nausea & Vomiting: No Nausea or Vomiting Pain: Pt. Denies Any Pain Peripheral Nerve Block: Patient did not receive a nerve block
== END 2022-05-22 11:54 | disposition home or self-care (01) ==
PROVIDERS: PCP Nurse Practitioner Family; Visit Provider Surgery
PROC: 0DJD8ZZ Inspection of Lower Intestinal Tract, Via Natural or Artificial Opening Endoscopic (ICD-10-PCS; CPT 45378; principal; 2022-05-22 10:15)
DX: Z12.11 Encounter for screening for malignant neoplasm of colon (principal); K57.30 Diverticulosis of large intestine without perforation or abscess without bleeding
CPT/HCPCS: 45378

== ENCOUNTER 2023-02-10 08:27 | Outpatient (REF) | payer MEDICAID, SELFPAY ==
[2023-02-10 16:08] LABS: Hemoglobin A1C 6.7 % (<5.7)
[2023-02-10 16:21] LABS: ALT 43 U/L (16-63); AST 24 U/L (15-37); Albumin 4.2 g/dL (3.4-5.0); Alkaline Phosphatase 75 U/L (46-116); Anion Gap 9.5 mmol/L (3-11); BUN 15 mg/dL (7-18); Bilirubin, Total 0.6 mg/dL (0.2-1.0); CO2 27.5 mmol/L (21.0-32.0); CREATININE 0.9 mg/dL (0.70-1.30); Calcium 9.1 mg/dL (8.5-10.1); Calculated LDL 98 mg/dL (<100); Chloride 105 mmol/L (98-107); Cholesterol 190 mg/dL (<200); Estimated GFR 102.76 (mL/min/1.73m2); Glucose 122 mg/dL (74-106); HDL Cholesterol 50 mg/dL (40-60); Sodium 142 mmol/L (136-145); TSH (W/Ref FT4) 1.36 uIU/mL (0.36-3.74); Total Protein 7.5 g/dL (6.4-8.2); Triglyceride 210 mg/dL (<150)
[2023-02-10 23:12] LABS: PSA, Screening 0.5 ng/mL (<=3.5)
== END 2023-02-10 08:28 | disposition home or self-care (01) ==
LOC: NCHCN 08:27
PROVIDERS: PCP Nurse Practitioner Family; Visit Provider Family Medicine
DX: Z00.00 Encounter for general adult medical examination without abnormal findings (principal); E11.9 Type 2 diabetes mellitus without complications; E78.5 Hyperlipidemia, unspecified; I10 Essential (primary) hypertension; E66.9 Obesity, unspecified
CPT/HCPCS: 80053; 80061; 84153; 83036; 84443

== ENCOUNTER 2023-05-02 13:19 | Emergency (ER) | payer MEDICAID, SELFPAY ==
[2023-05-02 13:22] VITALS: BP 150/88; PULSE 80; RESP 14; TEMP 36.7; O2SAT 98
--- NOTE | 2023-05-02 13:50 | ED.GENADUL_ITS ---
Discharge Plan Disposition Patient Disposition: Home Condition: Good Discharge Details Clinical Impression: Abscess of finger Primary Care Provider: Janey Snow ED Provider: Aidan Alford Home Meds and New Rx's Prescriptions: New cephalexin 500 mg capsule 500 mg PO Q6H 7 Days Qty: 28 0RF sulfamethoxazole-trimethoprim [Bactrim DS] 800-160 mg tablet 1 tab PO BID Qty: 14 0RF No Action multivitamin Tablet 1 tab PO DAILY methylphenidate HCl [Concerta] 54 mg tablet extended release 24hr 54 mg PO DAILY atorvastatin 40 mg tablet 40 mg PO QHS metformin 850 mg tablet 850 mg PO BID lisinopril 20 MG tablet 20 mg PO HS sertraline 100 MG tablet 100 mg PO HS chlorthalidone 25 MG tablet 25 mg PO DAILY bupropion HCl 75 MG tablet 75 mg PO DAILY magnesium oxide 400 MG tablet 400 mg PO DAILY Qty: 120 10RF potassium chloride 10 MEQ tablet extended release 40 meq PO DAILY Qty: 60 10RF cyclobenzaprine 10 mg tablet 10 mg PO TID PRN (Reason: muscle spasm) Qty: 10 0RF (DME) Blood Glucose Test 1 EACH strip 1 ea Miscellaneous DIRECTED Qty: 30 0RF (DME) lancets [Glucocom Lancets] 1 EACH misc 1 ea Miscellaneous DIRECTED Qty: 30 0RF (DME) blood-glucose meter [Glucocom Blood Glucose] 1 EACH kit 1 ea Miscellaneous DIRECTED Qty: 1 0RF Discharge Instructions Instructions: Abscess (ED) HPI General Date/Time Provider Initiated Documentation: 05/02/23 13:20 . HPI Narrative: 53 year old male with hx of DM, presents to the ED with infection on the top of his R 5th finger. He says it started as a small ingrown hair, and started to get more red. He has been squeezing it to get out some pus, but this morning more red and swollen. He denies any other injuries. He has prior hx MRSA, and concerned for this. Related Data Home Medications Medication Instructions Recorded Confirmed bupropion HCl 75 mg tablet 75 mg PO DAILY 11/09/15 05/02/23 chlorthalidone 25 mg tablet 25 mg PO DAILY 11/09/15 05/02/23 lisinopril 20 mg tablet 20 mg PO HS 11/09/15 05/02/23 magnesium oxide 400 mg (241.3 mg 400 mg PO DAILY #120 tabs 11/09/15 05/02/23 magnesium) tablet potassium chloride 10 mEq 40 meq (4 x 10 mEq) PO DAILY ##60 11/09/15 05/02/23 tablet,extended release sertraline 100 mg tablet 100 mg PO HS 11/09/15 05/02/23 blood sugar diagnostic (Blood #30 strips 02/23/18 05/02/23 Glucose Test strips) blood-glucose meter (Glucocom ##1 02/23/18 05/02/23 Blood Glucose kit) lancets 28 gauge (Glucocom Lancets) #30 ea 02/23/18 05/02/23 cyclobenzaprine 10 mg tablet 10 mg PO TID PRN muscle spasm #10 07/11/20 05/02/23 tabs atorvastatin 40 mg tablet 40 mg PO QHS 09/04/21 05/02/23 metformin 850 mg tablet 850 mg PO BID 09/04/21 05/02/23 methylphenidate HCl 54 mg 54 mg PO DAILY 09/04/21 05/02/23 tablet,extended release 24 hr (Concerta) multivitamin 1 tab PO DAILY 05/11/22 05/02/23 cephalexin 500 mg capsule 500 mg PO Q6H 7 days #28 caps 05/02/23 sulfamethoxazole 800 1 tab PO BID #14 tabs 05/02/23 mg-trimethoprim 160 mg tablet (Bactrim DS) Previous Rx's Medication Instructions Recorded magnesium oxide 400 mg (241.3 mg 400 mg PO DAILY #120 tabs 11/09/15 magnesium) tablet potassium chloride 10 mEq 40 meq (4 x 10 mEq) PO DAILY ##60 11/09/15 tablet,extended release blood sugar diagnostic (Blood #30 strips 02/23/18 Glucose Test strips) blood-glucose meter (Glucocom ##1 02/23/18 Blood Glucose kit) lancets 28 gauge (Glucocom Lancets) #30 ea 02/23/18 cyclobenzaprine 10 mg tablet 10 mg PO TID PRN muscle spasm #10 07/11/20 tabs cephalexin 500 mg capsule 500 mg PO Q6H 7 days #28 caps 05/02/23 sulfamethoxazole 800 1 tab PO BID #14 tabs 05/02/23 mg-trimethoprim 160 mg tablet (Bactrim DS) Allergies Allergy/AdvReac Type Severity Reaction Status Date / Time No Known Allergies Allergy Unverified 05/02/23 13:33 General Stated Complaint: Cellulitis LISA: 4 Review of Systems Narrative: CONST: no fever or chills SKIN: +skin infection PFSH All Active Problems (Updated 05/02/23 @ 13:54 by Aidan Alford MD) Abscess of finger (Acute) Medical History (Updated 05/02/23 @ 13:54 by Aidan Alford MD) STEPHANE on CPAP Diabetes Attention deficit disorder (ADD) in adult Surgical History History of eye surgery Lazy eye History of appendectomy Social History Smoking/Tobacco Use Status: Never Smoking risk assessment performed?: Yes Alcohol Intake: current Alcohol Intake frequency: holidays/special occasions only Drug use: Never Substance use type: does not use Current gender identity: male Do you feel safe at home: Yes Do you feel safe in your relationship?: Yes Exam Narrative Exam Narrative: Const: well appearing, no acute distress HEENT: normocephalic, atraumatic; MMM Skin: R 5th finger with 1 cm area of redness/swelling on proximal extensor aspect with very small opening on the top. Pus easily expressed with just a a little pressure. Course 53 yo male with hx DM, with small abscess to his R 5th finger, spontaneously draining. Cx was taken and sent to the lab, and then after discussing with pt, cleansed and injected some lidocaine, and opened it a little more. Scant about of pus expressed afterwards. Dressing applied, and will start on abx, including coverage for MRSA given his hx. Vital Signs Vital signs: Vital Signs Temperature 36.7 C 05/02/23 13:22 Pulse 80 05/02/23 13:22 Respiratory Rate 14 05/02/23 13:22 Blood Pressure 150/88 H 05/02/23 13:22 Pulse Oximetry 98 05/02/23 13:22 Temperature 36.7 C 05/02/23 13:22 Temperature Source Skin 05/02/23 13:22 Pulse 80 05/02/23 13:22 Respiratory Rate 14 05/02/23 13:22 Respiratory Effort Normal 05/02/23 13:36 Blood Pressure 150/88 H 05/02/23 13:22 Blood Pressure Position Sitting 05/02/23 13:22 Pulse Oximetry 98 05/02/23 13:22 Oxygen Delivery Method Room Air 05/02/23 13:22 Oxygen Flow Rate 0 05/02/23 13:22 Pain Level 2 05/02/23 13:22 Procedures Abscess I/D Site: Other (finger) Side (if applicable): Right Local Anesthetic: Lidocaine 1% Amount of anesthesia used (mL): 1 Amount of fluid expressed (mL): 1
== END 2023-05-02 13:59 | disposition home or self-care (01) ==
PROVIDERS: Emergency Provider Emergency Medicine; PCP Family Medicine
DX: L02.511 Cutaneous abscess of right hand (principal)
CPT/HCPCS: 10060

== ENCOUNTER 2024-11-24 19:22 | Outpatient (REF) | payer MEDICAID, SELFPAY ==
[2024-11-24 15:57] LABS: COMMENT (LAB VIEW ONLY) 98.19 mg/dL; Microalb ug/mg Crea 72.5 ug/mg Cr
== END 2024-11-24 19:23 | disposition home or self-care (01) ==
LOC: NCHCN 19:22
PROVIDERS: PCP Family Medicine; Visit Provider Family Medicine
DX: E11.9 Type 2 diabetes mellitus without complications (principal)
CPT/HCPCS: 82043; 82570

== ENCOUNTER 2025-05-08 19:43 | Emergency (ER) | payer MEDICAID, SELFPAY ==
[2025-05-08 19:47] VITALS: BP 134/88; PULSE 99; RESP 18; TEMP 36.8; O2SAT 96
[2025-05-08 19:59] VITALS: BP 134/88; PULSE 99; RESP 18; TEMP 36.8; O2SAT 96
--- NOTE | 2025-05-08 20:27 | W.ED.GENAD ---
Discharge Plan Discharge Details Chief Complaint: Diabetes Primary Care Provider: Janey Snow ED Provider: Sepideh Mackey Home Meds and New Rx's Prescriptions: No Action multivitamin Tablet 1 tab PO DAILY methylphenidate HCl [Concerta] 54 mg tablet extended release 24hr 54 mg PO DAILY atorvastatin 40 mg tablet 40 mg PO QHS metformin 850 mg tablet 850 mg PO BID lisinopril 20 MG tablet 20 mg PO HS sertraline 100 MG tablet 100 mg PO HS chlorthalidone 25 MG tablet 25 mg PO DAILY bupropion HCl 75 MG tablet 75 mg PO DAILY magnesium oxide 400 MG tablet 400 mg PO DAILY Qty: 120 10RF potassium chloride 10 MEQ tablet extended release 40 meq PO DAILY Qty: 60 10RF cyclobenzaprine 10 mg tablet 10 mg PO TID PRN (Reason: muscle spasm) Qty: 10 0RF (DME) Blood Glucose Test 1 EACH strip 1 ea Miscellaneous DIRECTED Qty: 30 0RF (DME) lancets [Glucocom Lancets] 1 EACH misc 1 ea Miscellaneous DIRECTED Qty: 30 0RF (DME) blood-glucose meter [Glucocom Blood Glucose] 1 EACH kit 1 ea Miscellaneous DIRECTED Qty: 1 0RF sulfamethoxazole-trimethoprim [Bactrim DS] 800-160 mg tablet 1 tab PO BID Qty: 14 0RF HPI General Mode of arrival: ambulatory. Date/Time Provider Initiated Documentation: 05/08/25 20:07. Limitations to Documentation: no limitations. Information obtained by: patient, RN notes reviewed and old records reviewed. HPI Narrative: 55-year-old male diabetic to the ER with chief hyperglycemia checked blood sugar at home as high 36. On arrival it is 450, he is noticed some increased urination and vision changes. states that she has noticed that he is having trouble speaking and he is complaining of increased urination. He states that he has been out of his Trulicity for the last few weeks and that he should have a prescription that should be ready in the next couple days. He does take metformin 850 mg twice daily has not been checking his sugar at home. He states that he has been lax about taking his medication denies any nausea vomiting diarrhea or any other associated symptoms. Related Data Home Medications Medication Instructions Recorded Confirmed bupropion HCl 75 mg tablet 75 mg PO DAILY 05/07/16 11/04/25 chlorthalidone 25 mg tablet 25 mg PO DAILY 11/09/15 05/08/25 lisinopril 20 mg tablet 20 mg PO HS 11/09/15 05/08/25 magnesium oxide 400 mg (241.3 mg 400 mg PO DAILY #120 tabs 11/09/15 05/08/25 magnesium) tablet potassium chloride 10 mEq 40 meq (4 x 10 mEq) PO DAILY ##60 11/09/15 05/08/25 tablet,extended release sertraline 100 mg tablet 100 mg PO HS 11/09/15 05/08/25 blood sugar diagnostic (Blood #30 strips 02/23/18 05/08/25 Glucose Test strips) blood-glucose meter (Glucocom ##1 02/23/18 05/08/25 Blood Glucose kit) lancets 28 gauge (Glucocom Lancets) #30 ea 02/23/18 05/08/25 cyclobenzaprine 10 mg tablet 10 mg PO TID PRN muscle spasm #10 07/11/20 05/08/25 tabs atorvastatin 40 mg tablet 40 mg PO QHS 09/04/21 05/08/25 metformin 850 mg tablet 850 mg PO BID 09/04/21 05/08/25 methylphenidate HCl 54 mg 54 mg PO DAILY 09/04/21 05/08/25 tablet,extended release 24 hr (Concerta) multivitamin 1 tab PO DAILY 05/11/22 05/08/25 sulfamethoxazole 800 1 tab PO BID #14 tabs 05/02/23 05/08/25 mg-trimethoprim 160 mg tablet (Bactrim DS) Previous Rx's Medication Instructions Recorded magnesium oxide 400 mg (241.3 mg 400 mg PO DAILY #120 tabs 11/09/15 magnesium) tablet potassium chloride 10 mEq 40 meq (4 x 10 mEq) PO DAILY ##60 11/09/15 tablet,extended release blood sugar diagnostic (Blood #30 strips 02/23/18 Glucose Test strips) blood-glucose meter (Glucocom ##1 02/23/18 Blood Glucose kit) lancets 28 gauge (Glucocom Lancets) #30 ea 02/23/18 cyclobenzaprine 10 mg tablet 10 mg PO TID PRN muscle spasm #10 07/11/20 tabs sulfamethoxazole 800 1 tab PO BID #14 tabs 05/02/23 mg-trimethoprim 160 mg tablet (Bactrim DS) Allergies Allergy/AdvReac Type Severity Reaction Status Date / Time No Known Allergies Allergy Unverified 05/08/25 20:00 General Stated Complaint: Diabetes LISA: 3 Review of Systems All systems reviewed & are unremarkable except as noted in HPI and below Genitourinary Genitourinary: Reports as per HPI and Reports urinary frequency Neurologic Neurologic: Reports as per HPI and Reports confusion Psychiatric Psychiatric: Reports confusion Endocrine Endocrine: Reports as per HPI, Reports polydipsia and Reports polyuria Exam Narrative Exam Narrative: Constitutional: Alert and oriented x3. Appears stated age. Normal body habitus. Head: Normocephalic, no trauma. Eyes: Pupils PERRL, Red reflex noted, EOM's intact. Eyelids symmetrical without lesions, discharge, or swelling. ENT: Bilateral TM's WNL, External ear normal to inspection, no mastoid TTP, swelling, or erythema, Nasal turbinates WNL, no nasal discharge. Normal dentition, Posterior pharynx WNL, no exudate. Chest: RRR, Normal S1, S2, distal pulses intact. Resp: Lungs clear to auscultation bilaterally, no wheezes, rales, or rhonchi. Abdomen: Soft, non-distended, Normoactive bowel sounds all 4 quads. Musculoskeletal: Normal gait, Moves all 4 extremities without difficulty. Skin: No suspicious rashes or lesions. Capillary refill less than 2 sec. Neurologic: Cranial nerves II-XII intact. Alert and oriented x 3. Motor: No deficits noted. Sensory: Intact bilaterally all 4 extremities. Hematologic/Lymphatic: No ecchymosis, no lymphadenopathy. Course Vital Signs Vital signs: Vital Signs Temperature 36.8 C 05/08/25 19:47 Pulse 99 H 05/08/25 19:47 Respiratory Rate 18 05/08/25 19:47 Blood Pressure 134/88 05/08/25 19:47 Pulse Oximetry 96 05/08/25 19:47 Temperature 36.8 C 05/08/25 19:59 Temperature Source Oral 05/08/25 19:59 Pulse 99 H 05/08/25 19:59 Respiratory Rate 18 05/08/25 19:59 Blood Pressure 134/88 05/08/25 19:59 Blood Pressure Position Sitting 05/08/25 19:59 Pulse Oximetry 96 05/08/25 19:59 Oxygen Delivery Method Room Air 05/08/25 19:59 Oxygen Flow Rate 0 05/08/25 19:47 Pain Level 0 05/08/25 19:47 Medical Decision Making 55-year-old male diabetic to the ER with chief hyperglycemia checked blood sugar at home as high 36. On arrival it is 450, he is noticed some increased urination and vision changes. states that she has noticed that he is having trouble speaking and he is complaining of increased urination. He states that he has been out of his Trulicity for the last few weeks and that he should have a prescription that should be ready in the next couple days. He does take metformin 850 mg twice daily has not been checking his sugar at home. He states that he has been lax about taking his medication denies any nausea vomiting diarrhea or any other associated symptoms. Workup ordered including CBC CMP VBG urinalysis liter of LR, will recheck glucose after fluids. 1 Liter NS ordered after 1 liter LR, Patient is not in DKA, Anion Gap normal, sodium 137 potassium 3.7 carbon dioxide 33.8, glucose 472 urinalysis shows trace blood 500 glucose. 2245: Repeat BGL after 2 Liters 419, changed second dose to 10 units of Novolog fast acting. Patient taking p.o. fluids without difficulty. Care is to be handed off to oncoming provider Liz Wright pending re-evaluation and disposition. This text was generated using [employer] dictation system, please disregard any oddities of phrase or misspellings. Medical Records Medical records reviewed: Yes I reviewed the patient's medical records. Lab Data Lab results reviewed: Yes I reviewed the patient's lab results. Labs: Laboratory Tests Range/Units 05/08/25 05/08/25 20:09 20:37 WBC (4.4-10.8) 10^3/uL 7.15 RBC (4.36-5.78) 10^6/uL 5.13 Hgb (13.5-17.5) g/dL 14.3 Hct (40.0-50.0) % 41.7 MCV (80-95) fL 81 MCH (27.0-33.0) pg 27.9 MCHC (32.0-36.0) % 34.3 RDW (11.8-14.1) % 12.9 Plt Count (130-400) 10^3/uL 164 MPV (8.0-11.0) fL 9.2 Immature Gran % % 0.6 Neutrophils % % 60.9 Lymphocytes % % 28.7 Monocytes % % 7.6 Eosinophils % % 1.8 Basophils % % 0.4 Nucleated RBC % (0.0-0.3) % 0.0 Absolute Neutrophils (1.2-6.7) 10^3/uL 4.36 Absolute Lymphocytes (1.2-3.4) 10^3/uL 2.05 Absolute Monocytes (0.1-0.8) 10^3/uL 0.54 Absolute Eosinophils (0.0-0.7) 10^3/uL 0.13 Absolute Basophils (0.0-0.2) 10^3/uL 0.03 VBG pH (7.31-7.41) 7.42 H VBG pCO2 (41-51) mmHg 51 VBG pO2 mmHg 28 VBG HCO3 (23-28) mmol/L 33 H VBG Total CO2 (24-29) mmol/L 30 H VBG O2 Saturation % 51 VBG Base Excess (-2-3) mmol/L 9 H Sodium (136-145) mmol/L 137 Potassium (3.5-5.1) mmol/L 3.7 Chloride (98-107) mmol/L 95 L Carbon Dioxide (21.0-32.0) mmol/L 33.8 H Anion Gap (3-11) mmol/L 8.2 BUN (7-18) mg/dL 16 Creatinine (0.70-1.30) mg/dL 1.3 Est GFR (CKD-EPI 2020) (mL/min/1.73m2) 64.88 Glucose (74-106) mg/dL 472 H Calcium (8.5-10.1) mg/dL 9.8 Magnesium (1.8-2.4) mg/dL 1.8 Total Bilirubin (0.2-1.0) mg/dL 0.5 AST (15-37) U/L 11 L ALT (16-63) U/L 46 Alkaline Phosphatase (46-116) U/L 93 Total Protein (6.4-8.2) g/dL 8.4 H Albumin (3.4-5.0) g/dL 4.2 Urine Color (Yellow) Yellow Urine Clarity (Clear) Clear Urine pH (5-8) 7.0 Ur Specific [place] (1.005-1.025) 1.015 Urine Protein (Neg-Trace) mg/dL 30 H Urine Ketones (Negative) mg/dL Negative Urine Blood (Negative) Trace-intact H Urine Nitrite (Negative) Negative Urine Bilirubin (Negative) Negative Urine Urobilinogen (Up to 0.2) mg/dL 0.2 Ur Leukocyte Esterase (Negative) Negative Urine RBC (0-2) HPF 0-2 Urine WBC (0-5) HPF 0-2 Ur Epithelial Cells (Negative) HPF Rare Urine Crystals (Negative) HPF Negative Urine Bacteria (Negative) HPF Rare Urine Casts (Negative) LPF Negative Urine Mucus (Negative) Negative Urine Other (Negative) Few Yeast Ur Culture Indicated? No Urine Glucose (Negative) mg/dL 500 H [facility] Medical History STEPHANE on CPAP Diabetes Attention deficit disorder (ADD) in adult Surgical History History of eye surgery Lazy eye History of appendectomy Social History Smoking/Tobacco Use Status: Never Smoking risk assessment performed?: Yes Alcohol Intake: current Alcohol Intake frequency: holidays/special occasions only Drug use: Never Substance use type: does not use Current gender identity: male Do you feel safe at home: Yes Do you feel safe in your relationship?: Yes
[2025-05-08 20:45] LABS: BE (Venous) 9 mmol/L (-2-3); HCO3 (Venous) 33 mmol/L (23-28); O2 Sat (Venous) 51 %; TCO2 (Venous) 30 mmol/L (24-29); pCO2 (Venous) 51 mmHg (41-51); pO2 (Venous) 28 mmHg
[2025-05-08] MEDS: Lactated Ringers 1,000 ML 1000 ML IV (20:46)
[2025-05-08 20:47] LABS: Abs Immature Grans 0.04 10^3/uL (0.0-0.06); HCT 41.7 % (40.0-50.0); HGB 14.3 g/dL (13.5-17.5); Immature Grans % 0.6 %; MCH 27.9 pg (27.0-33.0); MCHC 34.3 % (32.0-36.0); MCV 81 fL (80-95); MPV 9.2 fL (8.0-11.0); Platelet Count 164 10^3/uL (130-400); RBC 5.13 10^6/uL (4.36-5.78); RDW 12.9 % (11.8-14.1); RDW-SD 38.1 fL; WBC 7.15 10^3/uL (4.4-10.8)
[2025-05-08 20:52] LABS: Glucose 500 mg/dL (Negative)
[2025-05-08 20:59] LABS: C & S Indicated? No; RBC 0-2 HPF (0-2); WBC 0-2 HPF (0-5)
[2025-05-08 21:06] LABS: ALT 46 U/L (16-63); AST 11 U/L (15-37); Albumin 4.2 g/dL (3.4-5.0); Alkaline Phosphatase 93 U/L (46-116); Anion Gap 8.2 mmol/L (3-11); BUN 16 mg/dL (7-18); Bilirubin, Total 0.5 mg/dL (0.2-1.0); CO2 33.8 mmol/L (21.0-32.0); Calcium 9.8 mg/dL (8.5-10.1); Chloride 95 mmol/L (98-107); Glucose 472 mg/dL (74-106); Magnesium 1.8 mg/dL (1.8-2.4); Potassium 3.7 mmol/L (3.5-5.1); Sodium 137 mmol/L (136-145); Total Protein 8.4 g/dL (6.4-8.2)
[2025-05-08] MEDS: Insulin REGULAR-Human 100 UNITS/ML UNIT 10 UNITS SC (22:15)
[2025-05-08] MEDS: Normal Saline 1,000 ML 1000 ML IV (22:16)
[2025-05-08 22:35] VITALS: BP 139/91; PULSE 88; RESP 16; O2SAT 96
[2025-05-08] MEDS: Insulin Aspart 100 UNITS/ML UNIT 10 UNITS SC (23:24)
--- NOTE | 2025-05-09 00:32 | ED.PROG_ITS ---
Date of service: 05/08/25 Time of Service: 23:30 Medical Decision Making This patient was signed out to me. Please see previous note for H&P and initial eval. In brief, 55yo M with DM, non-adherent to home medications (metformin and truclity), presenting with hyperglycemia, blood glucose in 400's. Labs reassu ring, not DKA or HHS. Has received 10 units of regular insulin (repeat blood glucose low 400's) and is getting additional 10 units aspart now. Repeat q1 hour fiddlesticks 251, 197. On reassessment he is well appearing, in good spirits, reports feeling entirely well and back to normal. Vital signs are reassuring. He has a PCP appointment scheduled for later this morning. Discharged home to followup with PCP today; discharge instructions and return precautions were reviewed with patient and family at bedside who verbalized understanding. All questions were answered and they are in full agreement with the plan. Lab Data Lab results reviewed: Yes I reviewed the patient's lab results. Exam Narrative Exam Narrative: General: Alert, well appearing, well nourished, in no acute distress. Head: Normocephalic, atraumatic Neck: Trachea midline, Neck supple. Cardiac: RRR Resp: No respiratory distress. Abd: Non-distended Neuro: GCS 15. Fluent speech, no dysarthria. Moves all extremities freely against gravity. Normal stance. Steady gait with equal normal steps Discharge Plan Disposition Patient Disposition: Home Condition: Good Discharge Details Clinical Impression: Hyperglycemia Primary Care Provider: Janey Snow ED Provider: Kinza Wright Home Meds and New Rx's Prescriptions: Continued multivitamin Tablet 1 tab PO DAILY methylphenidate HCl [Concerta] 54 mg tablet extended release 24hr 54 mg PO DAILY atorvastatin 40 mg tablet 40 mg PO QHS metformin 850 mg tablet 850 mg PO BID lisinopril 20 MG tablet 20 mg PO HS sertraline 100 MG tablet 100 mg PO HS chlorthalidone 25 MG tablet 25 mg PO DAILY bupropion HCl 75 MG tablet 75 mg PO DAILY magnesium oxide 400 MG tablet 400 mg PO DAILY Qty: 120 10RF potassium chloride 10 MEQ tablet extended release 40 meq PO DAILY Qty: 60 10RF (DME) Blood Glucose Test 1 EACH strip 1 ea Miscellaneous DIRECTED Qty: 30 0RF (DME) lancets [Glucocom Lancets] 1 EACH misc 1 ea Miscellaneous DIRECTED Qty: 30 0RF (DME) blood-glucose meter [Glucocom Blood Glucose] 1 EACH kit 1 ea Miscellaneous DIRECTED Qty: 1 0RF Discontinued cyclobenzaprine 10 mg tablet 10 mg PO TID PRN (Reason: muscle spasm) Qty: 10 0RF sulfamethoxazole-trimethoprim [Bactrim DS] 800-160 mg tablet 1 tab PO BID Qty: 14 0RF Discharge Instructions Instructions: High Blood Sugar, Adult ED Additional Instructions: Take all of your prescribed medications including your medications for diabetes. Check your blood sugar at home 3 times a day. Call your primary care doctor in the morning to schedule an appointment for within the next 48 hours to followup on your visit today. Return to the emergency department for new or worsening symptoms including dizziness, confusion, increased thirst/urination, blood sugar higher than 400, or if you have any other concerns. Stand Alone Forms: Portal Information
[2025-05-09 01:43] VITALS: BP 147/93; PULSE 88; RESP 18; TEMP 36.7; O2SAT 96
[2025-05-09 02:09] VITALS: BP 147/93; PULSE 88; RESP 18; O2SAT 96
== END 2025-05-09 02:09 | disposition home or self-care (01) ==
PROVIDERS: Registered Nurse Emergency; Emergency Provider Student in an Organized Health Care Education/Training Program; PCP Family Medicine
DX: E11.65 Type 2 diabetes mellitus with hyperglycemia (principal); Z91.128 Patient's intentional underdosing of medication regimen for other reason; R35.0 Frequency of micturition
CPT/HCPCS: 00123; 36415; 36416; 80053; 82805; 82962; 96360; 96361; 99284; 81003; 81015; 83735; 85025; J1815

== ENCOUNTER 2025-06-10 12:27 | Emergency (ER) | payer MEDICAID, SELFPAY ==
[2025-06-10 12:33] VITALS: BP 144/87; PULSE 87; RESP 16; TEMP 36.4
[2025-06-10 12:40] VITALS: BP 144/87; PULSE 87; RESP 15; TEMP 36.4; O2SAT 95
--- NOTE | 2025-06-10 12:59 | W.ED.GENAD ---
Discharge Plan Disposition Patient Disposition: Home Condition: Good Discharge Details Clinical Impression: Abscess Primary Care Provider: Janey Snow ED Provider: Mami Aguilera Home Meds and New Rx's Prescriptions: New doxycycline hyclate 100 mg capsule 100 mg PO BID Qty: 13 0RF No Action multivitamin Tablet 1 tab PO DAILY methylphenidate HCl [Concerta] 54 mg tablet extended release 24hr 54 mg PO DAILY atorvastatin 40 mg tablet 40 mg PO QHS metformin 850 mg tablet 850 mg PO BID lisinopril 20 MG tablet 20 mg PO HS sertraline 100 MG tablet 100 mg PO HS chlorthalidone 25 MG tablet 25 mg PO DAILY bupropion HCl 75 MG tablet 75 mg PO DAILY magnesium oxide 400 MG tablet 400 mg PO DAILY Qty: 120 10RF potassium chloride 10 MEQ tablet extended release 40 meq PO DAILY Qty: 60 10RF (DME) Blood Glucose Test 1 EACH strip 1 ea Miscellaneous DIRECTED Qty: 30 0RF (DME) lancets [Glucocom Lancets] 1 EACH misc 1 ea Miscellaneous DIRECTED Qty: 30 0RF (DME) blood-glucose meter [Glucocom Blood Glucose] 1 EACH kit 1 ea Miscellaneous DIRECTED Qty: 1 0RF Discharge Instructions Instructions: Abscess Incision and Drainage (DC) Additional Instructions: Please follow-up with your primary care provider if you are not feeling significantly better in the next 3 to 4 days Please keep your wound clean and dry. Wash daily with antibacterial soap and water. Use warm compresses for 15 to 20 minutes at a time every hour or two to help promote blood flow and healing to the area. Apply a clean nonstick dressing. You may use ibuprofen 600 mg and Tylenol 650 mg every 6-8 hours as needed for discomfort. You are being prescribed an antibiotic for treatment of MRSA. Please take the full course as prescribed. Note that this may cause photosensitivity reaction in the sun, so be sure to use SPF 50 when you go outside. Do not take with calcium containing foods or supplements (make sure to separate consumption of calcium containing foods by 1 hour). Return to emergency care if you worsening symptoms despite treatment such as fever/chills, general malaise, increasing redness/pus draining after initial improvement, or if you are very worried and need to be rechecked again immediately Stand Alone Forms: Portal Information Referrals: Janey Snow [Primary Care Provider, Medicine] Discharge Data Discharge Date/Time-TO BE ENTERED AT DEPARTURE: 06/10/25 14:38 HPI General Date/Time Provider Initiated Documentation: 06/10/25 12:38. HPI Narrative: Mayito is a 55-year-old male who presents to the emergency department for evaluation of worsening folliculitis. He reports that he noticed a lesion on the back of his left thigh 2 weeks ago, consistent with previous folliculitis. He has been treating with warm compresses and topical antibiotics without improvement of symptoms. Over the last couple of days it has increased in size and redness/pain. He has been covering with a bandage, says it has had scant yellowish drainage. Denies systemic symptoms such as fevers/chills, general malaise, nausea/vomiting, change in bowel or bladder function, distal numbness/tingling. He does have a history of MRSA. PMH significant for diabetes, last A1c 6.7. Physical exam remarkable for erythematous mass consistent with abscess to posterior left thigh measuring 4 cm x 6 cm. Central opening draining scant yellow purulent fluid noted. Full painless range of motion of leg. Patient overall well-appearing. History presentation consistent with abscess. No red flags concerning for systemic symptoms, patient does not meet SIRS criteria. POCUS performed with Dr. Montenegro at bedside, small area of fluid collection noted. Let was applied for topical anesthetic, as well as 3 cc 2% lidocaine with epi. This provided good local anesthesia. I&D performed with #11 scalpel, loculations broken up. A moderate amount of purulent fluid was able to be expressed. Patient tolerated procedure well. Nonstick gauze applied. Will initiate antibiotics as patient has diabetes which increases risk for infection. Doxycycline initiated. Reviewed discharge instruction with patient, including wound care, use of antibiotics/precautions, and red flags indicate need for return to emergency care. He voices agreement plan of care. Related Data Home Medications ?Medication ?Instructions ?Recorded ?Confirmed bupropion HCl 75 mg tablet 75 mg PO DAILY 11/09/15 06/10/25 chlorthalidone 25 mg tablet 25 mg PO DAILY 11/09/15 06/10/25 lisinopril 20 mg tablet 20 mg PO HS 11/09/15 06/10/25 magnesium oxide 400 mg (241.3 mg 400 mg PO DAILY #120 tabs 11/09/15 06/10/25 magnesium) tablet potassium chloride 10 mEq 40 meq (4 x 10 mEq) PO DAILY ##60 11/09/15 06/10/25 tablet,extended release sertraline 100 mg tablet 100 mg PO HS 11/09/15 06/10/25 blood sugar diagnostic (Blood #30 strips 02/23/18 06/10/25 Glucose Test strips) blood-glucose meter (Glucocom ##1 02/23/18 06/10/25 Blood Glucose kit) lancets 28 gauge (Glucocom Lancets) #30 ea 02/23/18 06/10/25 atorvastatin 40 mg tablet 40 mg PO QHS 09/04/21 06/10/25 metformin 850 mg tablet 850 mg PO BID 09/04/21 06/10/25 methylphenidate HCl 54 mg 54 mg PO DAILY 09/04/21 06/10/25 tablet,extended release 24 hr (Concerta) multivitamin 1 tab PO DAILY 05/11/22 06/10/25 doxycycline hyclate 100 mg capsule 100 mg PO BID #13 caps 06/10/25 Previous Rx's ?Medication ?Instructions ?Recorded magnesium oxide 400 mg (241.3 mg 400 mg PO DAILY #120 tabs 11/09/15 magnesium) tablet potassium chloride 10 mEq 40 meq (4 x 10 mEq) PO DAILY ##60 11/09/15 tablet,extended release blood sugar diagnostic (Blood #30 strips 02/23/18 Glucose Test strips) blood-glucose meter (Glucocom ##1 02/23/18 Blood Glucose kit) lancets 28 gauge (Glucocom Lancets) #30 ea 02/23/18 doxycycline hyclate 100 mg capsule 100 mg PO BID #13 caps 06/10/25 Allergies Allergy/AdvReac Type Severity Reaction Status Date / Time No Known Allergies Allergy Unverified 06/10/25 12:38 General Stated Complaint: Cellulitis LISA: 3 Exam Const General: cooperative, healthy appearing, comfortable, no acute distress and well developed Nutritional Appearance: average body habitus and well nourished Orientation: alert and oriented x3 Resp Effort & Inspection: normal respiratory effort and able to speak in complete sentences Skin General skin exam: other (abscess 4 cm x 6 cm to L posterior thigh) Neuro General: patient alert, patient oriented x3, gait normal, tone normal and moves all extremities Extrem Right lower extremity: normal to inspection Left lower extremity: full ROM and hip/thigh (abscess noted as above) Details: normal ROM; no tenderness, no abrasions, no lacerations, no ecchymosis, no crepitus, no foreign bodies, no penetrating wound, no deformity and no unusual warmth Course Vital Signs Vital signs: Vital Signs Temperature 36.4 C 06/10/25 12:33 Pulse 87 06/10/25 12:33 Respiratory Rate 16 06/10/25 12:33 Blood Pressure 144/87 H 06/10/25 12:33 Temperature 36.4 C 06/10/25 12:40 Temperature Source Oral 06/10/25 12:40 Pulse 87 06/10/25 12:40 Respiratory Rate 15 06/10/25 12:40 Blood Pressure 144/87 H 06/10/25 12:40 Blood Pressure Position Sitting 06/10/25 12:40 Pulse Oximetry 95 06/10/25 12:40 Oxygen Delivery Method Room Air 06/10/25 12:40 Oxygen Flow Rate 0 06/10/25 12:33 Pain Level 2 06/10/25 12:33 Procedure Abscess Drainage Provider that performed the procedure: Mami Higuera Location of Exam: Lower extremity/left Indication: Abscess. Local anesthetic: Lidocaine 2% and with epi, Amount of Local Anesthetic Used (mL): 3. Sterility: Non Sterile. Procedure Prep: Hand hygiene, Chlohexidine and 11 blade. Technique used, incised with blade. Amount of fluid expressed(mL): 2 Irrigation: irrigation used. Packing: None. Outcome: Sucessful Ultrasound: Used/Image Saved Complications: None Medical Decision Making Mayito is a 55-year-old male who presents to the emergency department for evaluation of worsening folliculitis. He reports that he noticed a lesion on the back of his left thigh 2 weeks ago, consistent with previous folliculitis. He has been treating with warm compresses and topical antibiotics without improvement of symptoms. Over the last couple of days it has increased in size and redness/pain. He has been covering with a bandage, says it has had scant yellowish drainage. Denies systemic symptoms such as fevers/chills, general malaise, nausea/vomiting, change in bowel or bladder function, distal numbness/tingling. He does have a history of MRSA. PMH significant for diabetes, last A1c 6.7. Physical exam remarkable for erythematous mass consistent with abscess to posterior left thigh measuring 4 cm x 6 cm. Central opening draining scant yellow purulent fluid noted. Full painless range of motion of leg. Patient overall well-appearing. History presentation consistent with abscess. No red flags concerning for systemic symptoms, patient does not meet SIRS criteria. POCUS performed with Dr. Montenegro at bedside, small area of fluid collection noted. Let was applied for topical anesthetic, as well as 3 cc 2% lidocaine with epi. This provided good local anesthesia. I&D performed with #11 scalpel, loculations broken up. A moderate amount of purulent fluid was able to be expressed. Patient tolerated procedure well. Nonstick gauze applied. Will initiate antibiotics as patient has diabetes which increases risk for infection. Doxycycline initiated. Reviewed discharge instruction with patient, including wound care, use of antibiotics/precautions, and red flags indicate need for return to emergency care. He voices agreement plan of care. PFSH All Active Problems (Updated 06/10/25 @ 14:13 by Mami Higuera) Abscess (Acute) Medical History STEPHANE on CPAP Diabetes Attention deficit disorder (ADD) in adult Surgical History History of eye surgery Lazy eye History of appendectomy Social History Smoking/Tobacco Use Status: Never Smoking risk assessment performed?: Yes Alcohol Intake: current Alcohol Intake frequency: holidays/special occasions only Drug use: Never Substance use type: does not use Current gender identity: male Do you feel safe at home: Yes Do you feel safe in your relationship?: Yes POCUS Exam (ED) Limited Soft Tissue Exam DATE OF EXAM: 06/10/25 PROVIDER THAT PERFORMED THE STUDY: Mami Higuera IS THIS A REPEAT EXAM DURING THIS ENCOUNTER: No LOCATION OF EXAM: Lower extremity/left REASON FOR EXAM: Abscess Exam Complete
[2025-06-10] MEDS: Lidocaine/Epinephri/Tetracaine Topical Gel 3 ML TP (13:48)
[2025-06-10] MEDS: Ibuprofen 600 MG TAB PO (14:31)
[2025-06-10] MEDS: Doxycycline Hyclate 100 MG CAP PO (14:31)
[2025-06-10 14:36] VITALS: BP 127/96; PULSE 92; RESP 16; O2SAT 98
== END 2025-06-10 14:38 | disposition home or self-care (01) ==
PROVIDERS: Emergency Provider Nurse Practitioner Family; PCP Family Medicine
DX: L02.416 Cutaneous abscess of left lower limb (principal)
CPT/HCPCS: 99283; 99284; 10060; 76882; 76942